=== PATIENT | male | born 1930 | race Caucasian/White ===

== ENCOUNTER 2017-04-18 13:58 | Inpatient (IN) | payer MEDICARE, OTHER ==
[~2017-04-18] VITALS: Ht 188 cm; Wt 98.0 kg
[~2017-04-18 13:58] MED LIST: ASPI81CH PO; Benadryl25 MG PO; CALMAGZIN; CHOL10002; CLOP75 PO; CYAN1000 PO; Combigan Eye Dro5 ML BOTHEYES; DILT120 PO; DOCU100 PO; ELIQUIS2.5 MG PO; GLIM2 PO; GLIM4; LISI5 PO; METF500 PO; METF500C PO; NITR.4SL; NITR.4SL SL; Pravachol40 MG PO; Prednisone2.5 MG PO; TRIHYD253B PO; XARELTO10 MG PO; XARELTO20 MG PO; Xalatan2.5 ML BOTHEYES
[2017-04-18 15:27] LABS: Hematocrit 42.1 % (37.0-53.0); Hemoglobin 14.1 g/dL (13.5-17.5); Mean Corpuscular HGB 32.1 pg (26.0-34.0); Mean Corpuscular HGB Conc 33.5 g/dL (31.5-36.5); Mean Corpuscular Volume 96 fL (80-100); Mean Platelet Volume 11.4 fL (9.1-12.4); Platelet Count 153 K/mm3 (150-400); RDW Coefficient Variation 13.6 % (11.7-14.2); RDW Standard Deviation 48.9 fL (35.1-46.3); Red Blood Cell Count 4.39 M/mm3 (4.30-5.90); White Blood Cell Count 13.46 K/mm3 (4.00-11.30)
[2017-04-18] MEDS ORDERED: RANI150 PO (15:32)
[2017-04-18 15:51] LABS: Albumin, Blood 3.7 g/dL (3.4-5.0); Albumin/Globulin Ratio 1.4 (0.8-1.8); BASOPHILS PERCENT MAN 0 % (0-2); Bilirubin, Total 0.6 mg/dL (0.1-1.0); Bun/Creatinine Ratio 15.6 (12.0-20.0); Calcium, Blood 8.7 mg/dL (8.5-10.1); Creatinine, Blood 1.47 mg/dL (0.60-1.20); EOSINOPHILS ABSOLUTE MAN 0.26 K/mm3 (0.00-0.68); EOSINOPHILS PERCENT MAN 2 % (0-6); Free Thyroxine 0.9 ng/dL (0.70-1.60); Globulin, Blood 2.7 g/dL (2.2-4.0); LYMPHOCYTES % ATYPICAL MANUAL 1 % (0-0); LYMPHOCYTES ABSOLUTE MAN 3.23 K/mm3 (0.84-5.20); LYMPHOCYTES PERCENT MAN 23 % (21-46); MONOCYTES ABSOLUTE MAN 0.67 K/mm3 (0.16-1.47); MONOCYTES PERCENT MAN 5 % (4-13); NEUTROPHILS ABSOLUTE MAN 9.28 K/mm3 (1.96-9.15); Potassium, Blood 4.2 mmol/L (3.5-5.5); SEG NEUTROPHILS PERCENT MAN 69 % (41-73); TOTAL CELLS COUNTED 100; Total Protein, Blood 6.4 g/dL (6.4-8.2)
[2017-04-18 16:01] LABS: Thyroid Stimulating Hormone 1.77 uIU/mL (0.360-4.800)
[2017-04-18 16:09] LABS: Troponin I 1.03 ng/mL (0.000-0.040)
[2017-04-18 18:03] LABS: International Normalized Ratio 1.01; Prothrombin Time Results 10.5 Sec (9.7-11.5)
[2017-04-19 04:57] LABS: BASOPHILS ABSOLUTE AUTO 0.08 K/mm3 (0.00-0.23); BASOPHILS PERCENT AUTO 1 % (0-2); EOSINOPHILS ABSOLUTE AUTO 0.23 K/mm3 (0.00-0.68); EOSINOPHILS PERCENT AUTO 2 % (0-6); Hematocrit 42.8 % (37.0-53.0); Mean Corpuscular HGB 31.6 pg (26.0-34.0); Mean Corpuscular HGB Conc 32.7 g/dL (31.5-36.5); Mean Corpuscular Volume 97 fL (80-100); Mean Platelet Volume 11.5 fL (9.1-12.4); Platelet Count 161 K/mm3 (150-400); RDW Coefficient Variation 13.9 % (11.7-14.2); RDW Standard Deviation 49.3 fL (35.1-46.3); Red Blood Cell Count 4.43 M/mm3 (4.30-5.90); White Blood Cell Count 15.32 K/mm3 (4.00-11.30)
[2017-04-19 05:04] LABS: IMMATURE GRAN ABSOLUTE AUTO 0.04 K/mm3 (0.00-0.10); IMMATURE GRAN PERCENT AUTO 0 % (0-1); LYMPHOCYTES ABSOLUTE AUTO 6.23 K/mm3 (0.84-5.20); LYMPHOCYTES PERCENT AUTO 41 % (21-46); MONOCYTES ABSOLUTE AUTO 1.13 K/mm3 (0.16-1.47); MONOCYTES PERCENT AUTO 7 % (4-13); NEUTROPHILS ABSOLUTE AUTO 7.61 K/mm3 (1.96-9.15); NEUTROPHILS PERCENT AUTO 50 % (41-73)
[2017-04-19 05:22] LABS: Albumin, Blood 3.5 g/dL (3.4-5.0); Albumin/Globulin Ratio 1.3 (0.8-1.8); Bilirubin, Total 0.8 mg/dL (0.1-1.0); Calcium, Blood 8.4 mg/dL (8.5-10.1); Creatinine, Blood 1.37 mg/dL (0.60-1.20); Globulin, Blood 2.7 g/dL (2.2-4.0); Total Protein, Blood 6.2 g/dL (6.4-8.2)
[2017-04-19 06:21] LABS: Troponin I 1.01 ng/mL (0.000-0.040)
[2017-04-20 04:22] LABS: BASOPHILS ABSOLUTE AUTO 0.07 K/mm3 (0.00-0.23); BASOPHILS PERCENT AUTO 0 % (0-2); EOSINOPHILS ABSOLUTE AUTO 0.15 K/mm3 (0.00-0.68); EOSINOPHILS PERCENT AUTO 1 % (0-6); Hematocrit 41.7 % (37.0-53.0); Hemoglobin 13.9 g/dL (13.5-17.5); Mean Corpuscular HGB 31.9 pg (26.0-34.0); Mean Corpuscular HGB Conc 33.3 g/dL (31.5-36.5); Mean Corpuscular Volume 96 fL (80-100); Mean Platelet Volume 12.8 fL (9.1-12.4); Platelet Count 123 K/mm3 (150-400); RDW Coefficient Variation 13.4 % (11.7-14.2); RDW Standard Deviation 47.8 fL (35.1-46.3); Red Blood Cell Count 4.36 M/mm3 (4.30-5.90); White Blood Cell Count 17.47 K/mm3 (4.00-11.30)
[2017-04-20 04:24] LABS: IMMATURE GRAN ABSOLUTE AUTO 0.06 K/mm3 (0.00-0.10); IMMATURE GRAN PERCENT AUTO 0 % (0-1); LYMPHOCYTES PERCENT AUTO 35 % (21-46); MONOCYTES PERCENT AUTO 7 % (4-13); NEUTROPHILS ABSOLUTE AUTO 9.79 K/mm3 (1.96-9.15); NEUTROPHILS PERCENT AUTO 56 % (41-73)
[2017-04-20 04:52] LABS: Albumin, Blood 3.7 g/dL (3.4-5.0); Albumin/Globulin Ratio 1.2 (0.8-1.8); Bun/Creatinine Ratio 21.8 (12.0-20.0); Calcium, Blood 8.9 mg/dL (8.5-10.1); Creatinine, Blood 1.47 mg/dL (0.60-1.20); Globulin, Blood 3.2 g/dL (2.2-4.0); Potassium, Blood 4.5 mmol/L (3.5-5.5); Total Protein, Blood 6.9 g/dL (6.4-8.2)
[2017-04-21] MEDS ORDERED: AZIT250 PO (14:57)
[2017-04-21] MEDS ORDERED: DILT120 PO (14:58)
== END 2017-04-21 15:07 | disposition home health service (06) | DRG 308 ==
LOC: ER 13:58 → PCU 13:59
PROVIDERS: Emergency Medicine; Family Medicine; Pharmacist
DX: I48.0 Paroxysmal atrial fibrillation (principal); J18.9 Pneumonia, unspecified organism; C91.10 Chronic lymphocytic leukemia of B-cell type not having achieved remission; E11.22 Type 2 diabetes mellitus with diabetic chronic kidney disease; I13.0 Hypertensive heart and chronic kidney disease with heart failure and stage 1 through stage 4 chronic kidney disease, or unspecified chronic kidney disease; E11.51 Type 2 diabetes mellitus with diabetic peripheral angiopathy without gangrene; I50.20 Unspecified systolic (congestive) heart failure; F05 Delirium due to known physiological condition; G31.84 Mild cognitive impairment of uncertain or unknown etiology; N18.9 Chronic kidney disease, unspecified; I25.10 Atherosclerotic heart disease of native coronary artery without angina pectoris; E78.5 Hyperlipidemia, unspecified; Z88.0 Allergy status to penicillin; I25.2 Old myocardial infarction; Z95.5 Presence of coronary angioplasty implant and graft; Z87.891 Personal history of nicotine dependence; Z79.01 Long term (current) use of anticoagulants; Z79.82 Long term (current) use of aspirin; Z79.84 Long term (current) use of oral hypoglycemic drugs; Z79.899 Other long term (current) drug therapy
CPT/HCPCS: 36415; 71046; 80053; 82947; 83880; 84439; 84443; 84484; 85025; 85610; 85730; 87040; 93005; 93010; 93306; 96361; 96365; 96366; 96375; 99285; J0456; J0696; J1644; J1650; J1940; J7030; J7050; J7060

== ENCOUNTER 2017-04-26 09:13 | Inpatient (IN) | payer MEDICARE, OTHER ==
[~2017-04-26] VITALS: Ht 188 cm; Wt 103.8 kg
[~2017-04-26 09:13] MED LIST changes: +AZIT250 PO; +RANI150 PO
[2017-04-26 09:37] LABS: Hematocrit 39.2 % (37.0-53.0); Hemoglobin 12.9 g/dL (13.5-17.5); Mean Corpuscular HGB 31.8 pg (26.0-34.0); Mean Corpuscular HGB Conc 32.9 g/dL (31.5-36.5); Mean Corpuscular Volume 97 fL (80-100); Mean Platelet Volume 11.5 fL (9.1-12.4); Platelet Count 218 K/mm3 (150-400); RDW Coefficient Variation 13.9 % (11.7-14.2); RDW Standard Deviation 49.6 fL (35.1-46.3); Red Blood Cell Count 4.06 M/mm3 (4.30-5.90)
[2017-04-26 10:08] LABS: Albumin, Blood 3.7 g/dL (3.4-5.0); Albumin/Globulin Ratio 1.2 (0.8-1.8); Bilirubin, Total 0.7 mg/dL (0.1-1.0); Bun/Creatinine Ratio 26.9 (12.0-20.0); Calcium, Blood 8.5 mg/dL (8.5-10.1); Creatinine, Blood 1.6 mg/dL (0.60-1.20); Potassium, Blood 4.5 mmol/L (3.5-5.5); Total Protein, Blood 6.7 g/dL (6.4-8.2)
[2017-04-26 10:12] LABS: Troponin I 0.919 ng/mL (0.000-0.040)
[2017-04-26 10:39] LABS: BASOPHILS ABSOLUTE MAN 0.17 K/mm3 (0.00-0.23); BASOPHILS PERCENT MAN 1 % (0-2); EOSINOPHILS PERCENT MAN 0 % (0-6); LYMPHOCYTES ABSOLUTE MAN 8.23 K/mm3 (0.84-5.20); LYMPHOCYTES PERCENT MAN 46 % (21-46); MONOCYTES ABSOLUTE MAN 0.71 K/mm3 (0.16-1.47); MONOCYTES PERCENT MAN 4 % (4-13); NEUTROPHILS ABSOLUTE MAN 8.77 K/mm3 (1.96-9.15); SEG NEUTROPHILS PERCENT MAN 49 % (41-73); TOTAL CELLS COUNTED 100
[2017-04-26] MEDS ORDERED: GLIM2 PO (15:08)
[2017-04-27 05:18] LABS: BASOPHILS ABSOLUTE AUTO 0.08 K/mm3 (0.00-0.23); BASOPHILS PERCENT AUTO 1 % (0-2); EOSINOPHILS ABSOLUTE AUTO 0.13 K/mm3 (0.00-0.68); EOSINOPHILS PERCENT AUTO 1 % (0-6); Hematocrit 39.8 % (37.0-53.0); IMMATURE GRAN ABSOLUTE AUTO 0.05 K/mm3 (0.00-0.10); IMMATURE GRAN PERCENT AUTO 0 % (0-1); LYMPHOCYTES ABSOLUTE AUTO 3.83 K/mm3 (0.84-5.20); LYMPHOCYTES PERCENT AUTO 24 % (21-46); MONOCYTES ABSOLUTE AUTO 0.96 K/mm3 (0.16-1.47); MONOCYTES PERCENT AUTO 6 % (4-13); Mean Corpuscular HGB 31.8 pg (26.0-34.0); Mean Corpuscular HGB Conc 32.7 g/dL (31.5-36.5); Mean Corpuscular Volume 97 fL (80-100); Mean Platelet Volume 11.5 fL (9.1-12.4); NEUTROPHILS PERCENT AUTO 68 % (41-73); Platelet Count 190 K/mm3 (150-400); RDW Coefficient Variation 13.8 % (11.7-14.2); RDW Standard Deviation 49.3 fL (35.1-46.3); Red Blood Cell Count 4.09 M/mm3 (4.30-5.90); White Blood Cell Count 15.95 K/mm3 (4.00-11.30)
[2017-04-27 05:47] LABS: Albumin, Blood 3.6 g/dL (3.4-5.0); Albumin/Globulin Ratio 1.2 (0.8-1.8); Bilirubin, Total 0.7 mg/dL (0.1-1.0); Bun/Creatinine Ratio 28.7 (12.0-20.0); Calcium, Blood 8.7 mg/dL (8.5-10.1); Creatinine, Blood 1.67 mg/dL (0.60-1.20); Globulin, Blood 2.9 g/dL (2.2-4.0); Potassium, Blood 4.1 mmol/L (3.5-5.5); Total Protein, Blood 6.5 g/dL (6.4-8.2)
[2017-04-28 05:12] LABS: BASOPHILS ABSOLUTE AUTO 0.05 K/mm3 (0.00-0.23); BASOPHILS PERCENT AUTO 0 % (0-2); EOSINOPHILS ABSOLUTE AUTO 0.18 K/mm3 (0.00-0.68); EOSINOPHILS PERCENT AUTO 1 % (0-6); Hematocrit 38.9 % (37.0-53.0); Hemoglobin 12.8 g/dL (13.5-17.5); IMMATURE GRAN ABSOLUTE AUTO 0.07 K/mm3 (0.00-0.10); IMMATURE GRAN PERCENT AUTO 1 % (0-1); LYMPHOCYTES ABSOLUTE AUTO 3.62 K/mm3 (0.84-5.20); LYMPHOCYTES PERCENT AUTO 25 % (21-46); MONOCYTES ABSOLUTE AUTO 1.08 K/mm3 (0.16-1.47); MONOCYTES PERCENT AUTO 8 % (4-13); Mean Corpuscular HGB Conc 32.9 g/dL (31.5-36.5); Mean Corpuscular Volume 97 fL (80-100); Mean Platelet Volume 11.3 fL (9.1-12.4); NEUTROPHILS ABSOLUTE AUTO 9.35 K/mm3 (1.96-9.15); NEUTROPHILS PERCENT AUTO 65 % (41-73); Platelet Count 176 K/mm3 (150-400); RDW Coefficient Variation 13.6 % (11.7-14.2); White Blood Cell Count 14.35 K/mm3 (4.00-11.30)
[2017-04-28 05:42] LABS: Albumin, Blood 3.4 g/dL (3.4-5.0); Anion Gap 11 mmol/L (6-16); Blood Urea Nitrogen 53 mg/dL (8-24); Bun/Creatinine Ratio 26.2 (12.0-20.0); CO2, Blood 22 mmol/L (21-32); Calcium, Blood 8.7 mg/dL (8.5-10.1); Chloride, Blood 105 mmol/L (98-108); Creatinine, Blood 2.02 mg/dL (0.60-1.20); Glomerular Filtration Rate 33 (60-); Glucose, Blood 118 mg/dL (70-99); Phosphorus, Blood 3.7 mg/dL (2.5-4.9); Sodium, Blood 138 mmol/L (136-145)
[2017-04-28 12:39] LABS: Vancomycin, Trough 11.4 ug/mL (5.0-10.0)
[2017-04-29 06:17] LABS: Albumin, Blood 3.1 g/dL (3.4-5.0); Anion Gap 8 mmol/L (6-16); Blood Urea Nitrogen 59 mg/dL (8-24); Bun/Creatinine Ratio 30.4 (12.0-20.0); CO2, Blood 24 mmol/L (21-32); Calcium, Blood 8.5 mg/dL (8.5-10.1); Chloride, Blood 106 mmol/L (98-108); Creatinine, Blood 1.94 mg/dL (0.60-1.20); Glomerular Filtration Rate 35 (60-); Glucose, Blood 103 mg/dL (70-99); Phosphorus, Blood 3.6 mg/dL (2.5-4.9); Potassium, Blood 4.2 mmol/L (3.5-5.5); Sodium, Blood 138 mmol/L (136-145)
[2017-04-30 06:08] LABS: Albumin, Blood 3.1 g/dL (3.4-5.0); Anion Gap 8 mmol/L (6-16); Blood Urea Nitrogen 61 mg/dL (8-24); Bun/Creatinine Ratio 30.5 (12.0-20.0); CO2, Blood 26 mmol/L (21-32); Calcium, Blood 8.3 mg/dL (8.5-10.1); Chloride, Blood 104 mmol/L (98-108); Glomerular Filtration Rate 34 (60-); Glucose, Blood 133 mg/dL (70-99); Phosphorus, Blood 3.9 mg/dL (2.5-4.9); Sodium, Blood 138 mmol/L (136-145)
[2017-04-30] MEDS ORDERED: Acetaminophen325 M1 PO (14:25)
[2017-04-30] MEDS ORDERED: CARV6.25 PO (14:26)
[2017-04-30] MEDS ORDERED: FURO20 PO (14:27)
[2017-04-30] MEDS ORDERED: LEVFLO250 PO (14:28)
[2017-04-30] MEDS ORDERED: SPIR25 PO (14:29)
[2017-04-30] MEDS ORDERED: PANT40 PO (14:29)
[2017-04-30] MEDS ORDERED: Nitroglycerin0.4 MG SL (14:29)
[2017-04-30] MEDS ORDERED: ALBU90OI INH (14:30)
[2017-04-30] MEDS ORDERED: Desyrel50 MG PO (14:30)
== END 2017-04-30 17:50 | disposition home or self-care (01) | DRG 291 ==
LOC: ER 09:13 → MEDS 12:22 → ENPENDDIS 04-30 14:04 → MEDS 04-30 17:50
PROVIDERS: Emergency Medicine; Family Medicine; Internal Medicine
DX: I50.43 Acute on chronic combined systolic (congestive) and diastolic (congestive) heart failure (principal); J18.9 Pneumonia, unspecified organism; E87.2 Acidosis; I48.2 Chronic atrial fibrillation; I24.8 Other forms of acute ischemic heart disease; E11.9 Type 2 diabetes mellitus without complications; I73.9 Peripheral vascular disease, unspecified; G31.84 Mild cognitive impairment of uncertain or unknown etiology; E78.5 Hyperlipidemia, unspecified; F17.211 Nicotine dependence, cigarettes, in remission; Z66 Do not resuscitate; Z79.01 Long term (current) use of anticoagulants; Z79.82 Long term (current) use of aspirin; Z86.73 Personal history of transient ischemic attack (TIA), and cerebral infarction without residual deficits; Z98.52 Vasectomy status
CPT/HCPCS: 36415; 71046; 80053; 80069; 80202; 82947; 83605; 83880; 84484; 85025; 87040; 93005; 93010; 94640; 94760; 94761; 94762; 96374; 96375; 97110; 97116; 97161; 97530; 99285; G8978; G8979; J1940; J1956; J2060; J3370; J7030; J7050

== ENCOUNTER 2017-05-17 14:11 | Emergency (ER) | payer MEDICARE, OTHER ==
[~2017-05-17] VITALS: Ht 188 cm; Wt 90.7 kg
[~2017-05-17 14:11] MED LIST changes: +ALBU90OI INH; +Acetaminophen325 M1 PO; +CARV6.25 PO; +Desyrel50 MG PO; +FURO20 PO; +LEVFLO250 PO; +Nitroglycerin0.4 MG SL; +PANT40 PO; +SPIR25 PO
[2017-05-17 14:53] LABS: BASOPHILS ABSOLUTE AUTO 0.04 K/mm3 (0.00-0.23); BASOPHILS PERCENT AUTO 0 % (0-2); EOSINOPHILS ABSOLUTE AUTO 0.16 K/mm3 (0.00-0.68); EOSINOPHILS PERCENT AUTO 1 % (0-6); Hematocrit 40.6 % (37.0-53.0); IMMATURE GRAN ABSOLUTE AUTO 0.04 K/mm3 (0.00-0.10); IMMATURE GRAN PERCENT AUTO 0 % (0-1); LYMPHOCYTES ABSOLUTE AUTO 2.76 K/mm3 (0.84-5.20); LYMPHOCYTES PERCENT AUTO 24 % (21-46); MONOCYTES ABSOLUTE AUTO 0.72 K/mm3 (0.16-1.47); MONOCYTES PERCENT AUTO 6 % (4-13); Mean Corpuscular HGB 31.9 pg (26.0-34.0); Mean Corpuscular Volume 100 fL (80-100); Mean Platelet Volume 12.4 fL (9.1-12.4); NEUTROPHILS ABSOLUTE AUTO 7.69 K/mm3 (1.96-9.15); NEUTROPHILS PERCENT AUTO 67 % (41-73); Platelet Count 131 K/mm3 (150-400); RDW Coefficient Variation 13.6 % (11.7-14.2); RDW Standard Deviation 49.6 fL (35.1-46.3); Red Blood Cell Count 4.08 M/mm3 (4.30-5.90); White Blood Cell Count 11.41 K/mm3 (4.00-11.30)
[2017-05-17 15:11] LABS: Albumin, Blood 3.3 g/dL (3.4-5.0); Albumin/Globulin Ratio 1.1 (0.8-1.8); Bilirubin, Total 0.7 mg/dL (0.1-1.0); Bun/Creatinine Ratio 14.7 (12.0-20.0); Calcium, Blood 8.5 mg/dL (8.5-10.1); Creatinine, Blood 1.97 mg/dL (0.60-1.20); Globulin, Blood 2.9 g/dL (2.2-4.0); Potassium, Blood 4.2 mmol/L (3.5-5.5); Total Protein, Blood 6.2 g/dL (6.4-8.2); Troponin I 0.094 ng/mL (0.000-0.040)
[2017-05-17] MEDS ORDERED: METF500C PO (15:54)
[2017-05-17] MEDS ORDERED: FURO40 PO (15:56)
[2017-05-17] MEDS ORDERED: SIMV40 PO (15:59)
[2017-05-17] MEDS ORDERED: DILT120 PO (16:00)
[2017-05-17] MEDS ORDERED: Zantac25 MG/1 ML (16:01)
[2017-05-17] MEDS ORDERED: Cartia Xt120 MG PO (16:02)
[2017-05-17] MEDS ORDERED: DIGOX125 MCG PO (16:17)
== END 2017-05-17 16:45 | disposition home or self-care (01) ==
LOC: ER 14:11
PROVIDERS: Emergency Medicine
DX: I50.9 Heart failure, unspecified (principal); Z88.0 Allergy status to penicillin; Z79.899 Other long term (current) drug therapy; Z79.82 Long term (current) use of aspirin; Z79.2 Long term (current) use of antibiotics; Z86.73 Personal history of transient ischemic attack (TIA), and cerebral infarction without residual deficits; I48.91 Unspecified atrial fibrillation; Z87.891 Personal history of nicotine dependence
CPT/HCPCS: 36415; 71046; 80053; 83880; 84484; 85025; 93005; 93010; 96374; 99284; J1940

== ENCOUNTER → 2017-06-08 | Outpatient (CLI) | payer MEDICARE, OTHER ==
[~2017-06-08] MED LIST changes: +Cartia Xt120 MG PO; +DIGOX125 MCG PO; +FURO40 PO; +SIMV40 PO
[2017-06-08 11:55] LABS: Protein, Urine Quantitative 25.6 mg/dL (0.0-11.9)
[2017-06-08 11:57] LABS: Microalbumin, Urine Quant. 99.3 mg/L (0.000-20.000)
== END | disposition home or self-care (01) ==
LOC: LAB SHORT 06:30 → OLS 06:30 → LAB FUT 06-06 10:00
PROVIDERS: Internal Medicine Nephrology
DX: N18.3 Chronic kidney disease, stage 3 (moderate) (principal); D63.1 Anemia in chronic kidney disease; D75.1 Secondary polycythemia; N25.81 Secondary hyperparathyroidism of renal origin; E78.00 Pure hypercholesterolemia, unspecified; E55.9 Vitamin D deficiency, unspecified; R76.9 Abnormal immunological finding in serum, unspecified; R94.5 Abnormal results of liver function studies; R94.6 Abnormal results of thyroid function studies
CPT/HCPCS: 81050; 82043; 84156

== ENCOUNTER 2017-12-04 16:18 | Inpatient (IN) | payer MEDICARE, OTHER ==
[~2017-12-04] VITALS: Ht 188 cm; Wt 97.9 kg
[~2017-12-04 16:18] MED LIST changes: +Zantac25 MG/1 ML
[2017-12-04 17:05] LABS: BASOPHILS ABSOLUTE AUTO 0.06 K/mm3 (0.00-0.23); BASOPHILS PERCENT AUTO 0 % (0-2); EOSINOPHILS ABSOLUTE AUTO 0.25 K/mm3 (0.00-0.68); EOSINOPHILS PERCENT AUTO 2 % (0-6); Hematocrit 33.9 % (37.0-53.0); Hemoglobin 11.1 g/dL (13.5-17.5); IMMATURE GRAN ABSOLUTE AUTO 0.04 K/mm3 (0.00-0.10); IMMATURE GRAN PERCENT AUTO 0 % (0-1); LYMPHOCYTES ABSOLUTE AUTO 5.61 K/mm3 (0.84-5.20); LYMPHOCYTES PERCENT AUTO 40 % (21-46); MONOCYTES ABSOLUTE AUTO 1.07 K/mm3 (0.16-1.47); MONOCYTES PERCENT AUTO 8 % (4-13); Mean Corpuscular HGB 33.5 pg (26.0-34.0); Mean Corpuscular HGB Conc 32.7 g/dL (31.5-36.5); Mean Corpuscular Volume 102 fL (80-100); Mean Platelet Volume 11.5 fL (9.1-12.4); NEUTROPHILS ABSOLUTE AUTO 6.91 K/mm3 (1.96-9.15); NEUTROPHILS PERCENT AUTO 50 % (41-73); Platelet Count 153 K/mm3 (150-400); RDW Coefficient Variation 11.9 % (11.7-14.2); RDW Standard Deviation 45.1 fL (35.1-46.3); Red Blood Cell Count 3.31 M/mm3 (4.30-5.90); White Blood Cell Count 13.94 K/mm3 (4.00-11.30)
[2017-12-04 17:24] LABS: Albumin/Globulin Ratio 1.3 (0.8-1.8); Bilirubin, Total 0.3 mg/dL (0.1-1.0); Bun/Creatinine Ratio 22.6 (12.0-20.0); Calcium, Blood 9.1 mg/dL (8.5-10.1); Creatinine, Blood 3.76 mg/dL (0.60-1.20); Globulin, Blood 3.1 g/dL (2.2-4.0); Potassium, Blood 5.3 mmol/L (3.5-5.5); Total Protein, Blood 7.1 g/dL (6.4-8.2); Troponin I 0.025 ng/mL (0.000-0.040)
[2017-12-05 04:49] LABS: BASOPHILS ABSOLUTE AUTO 0.03 K/mm3 (0.00-0.23); BASOPHILS PERCENT AUTO 0 % (0-2); EOSINOPHILS ABSOLUTE AUTO 0.18 K/mm3 (0.00-0.68); EOSINOPHILS PERCENT AUTO 2 % (0-6); Hematocrit 31.7 % (37.0-53.0); Hemoglobin 10.4 g/dL (13.5-17.5); IMMATURE GRAN ABSOLUTE AUTO 0.03 K/mm3 (0.00-0.10); IMMATURE GRAN PERCENT AUTO 0 % (0-1); LYMPHOCYTES ABSOLUTE AUTO 4.54 K/mm3 (0.84-5.20); LYMPHOCYTES PERCENT AUTO 42 % (21-46); MONOCYTES ABSOLUTE AUTO 0.92 K/mm3 (0.16-1.47); MONOCYTES PERCENT AUTO 9 % (4-13); Mean Corpuscular HGB Conc 32.8 g/dL (31.5-36.5); Mean Corpuscular Volume 101 fL (80-100); Mean Platelet Volume 11.4 fL (9.1-12.4); NEUTROPHILS PERCENT AUTO 47 % (41-73); Platelet Count 127 K/mm3 (150-400); RDW Coefficient Variation 12.2 % (11.7-14.2); RDW Standard Deviation 44.5 fL (35.1-46.3); Red Blood Cell Count 3.15 M/mm3 (4.30-5.90)
[2017-12-05 05:07] LABS: Albumin, Blood 3.6 g/dL (3.4-5.0); Anion Gap 9 mmol/L (6-16); Blood Urea Nitrogen 85 mg/dL (8-24); Bun/Creatinine Ratio 25.4 (12.0-20.0); CO2, Blood 26 mmol/L (21-32); Calcium, Blood 9.1 mg/dL (8.5-10.1); Chloride, Blood 108 mmol/L (98-108); Creatinine, Blood 3.34 mg/dL (0.60-1.20); Glomerular Filtration Rate 19 (60-); Glucose, Blood 132 mg/dL (70-99); Magnesium, Blood 2.7 mg/dL (1.6-2.4); Phosphorus, Blood 4.5 mg/dL (2.5-4.9); Potassium, Blood 4.9 mmol/L (3.5-5.5); Sodium, Blood 143 mmol/L (136-145)
[2017-12-05 05:58] LABS: Source, Urine Clean Catch
[2017-12-05 06:04] LABS: Bilirubin, Urine Neg (Neg); Blood, Urine Neg (Neg); Glucose Qualitative, Urine Neg (Neg); Ketones, Urine Neg (Neg); Leukocyte Esterase, Urine Neg (Neg); Nitrite, Urine Neg (Neg); Protein, Urine 1+ (Neg); Urobilinogen, Urine NORM (Normal); pH, Urine 6.5 (5.0-8.0)
[2017-12-05 06:06] LABS: Appearance, Urine Clear (Clear); Color, Urine Yellow (P-Yellow)
[2017-12-05 06:30] LABS: U Amphetamine Screen Not Detected; U Barbituate Screen Not Detected; U Benzodiazapine Screen Not Detected; U Methamphetamine Screen Not Detected
[2017-12-05 06:31] LABS: U Buprenorphine Screen Not Detected; U Cannabinoids Screen Not Detected; U Cocaine Screen Not Detected; U Methadone Screen Not Detected; U Opiates Screen Not Detected; U Oxycodone Screen Not Detected; U Phencyclidine Screen Not Detected; U Propoxyphene Screen Not Detected
[2017-12-05] MEDS ORDERED: BUME2 PO (11:39)
[2017-12-06 05:56] LABS: Albumin, Blood 3.7 g/dL (3.4-5.0); Anion Gap 8 mmol/L (6-16); Blood Urea Nitrogen 77 mg/dL (8-24); Bun/Creatinine Ratio 24.3 (12.0-20.0); CO2, Blood 27 mmol/L (21-32); Calcium, Blood 9.1 mg/dL (8.5-10.1); Chloride, Blood 107 mmol/L (98-108); Creatinine, Blood 3.17 mg/dL (0.60-1.20); Glomerular Filtration Rate 20 (60-); Glucose, Blood 130 mg/dL (70-99); Magnesium, Blood 2.7 mg/dL (1.6-2.4); Phosphorus, Blood 3.8 mg/dL (2.5-4.9); Potassium, Blood 4.7 mmol/L (3.5-5.5); Sodium, Blood 142 mmol/L (136-145)
[2017-12-06 10:12] LABS: HBSAG SCREEN Negative (Negative); HEP A AB, IGM Negative (Negative); HEP B CORE AB, IGM Negative (Negative); HEP C VIRUS AB <0.1 (0.0-0.9)
[2017-12-06] MEDS ORDERED: FURO40 (16:06)
== END 2017-12-06 16:35 | disposition home or self-care (01) | DRG 309 ==
LOC: ER 16:18 → ICUW 18:43 → ERHOLD 18:43 → ICUW 23:00 → SURS 12-05 14:15 → ICUE 12-06 12:07
PROVIDERS: Emergency Medicine; Internal Medicine Nephrology; Nurse Practitioner Acute Care
DX: I48.2 Chronic atrial fibrillation (principal); N18.4 Chronic kidney disease, stage 4 (severe); N17.9 Acute kidney failure, unspecified; I50.42 Chronic combined systolic (congestive) and diastolic (congestive) heart failure; I12.9 Hypertensive chronic kidney disease with stage 1 through stage 4 chronic kidney disease, or unspecified chronic kidney disease; E11.22 Type 2 diabetes mellitus with diabetic chronic kidney disease; E11.51 Type 2 diabetes mellitus with diabetic peripheral angiopathy without gangrene; I25.10 Atherosclerotic heart disease of native coronary artery without angina pectoris; E87.5 Hyperkalemia; D63.1 Anemia in chronic kidney disease; E86.9 Volume depletion, unspecified; E83.41 Hypermagnesemia; Z86.73 Personal history of transient ischemic attack (TIA), and cerebral infarction without residual deficits; Z95.5 Presence of coronary angioplasty implant and graft; Z79.01 Long term (current) use of anticoagulants; Z79.84 Long term (current) use of oral hypoglycemic drugs; Z79.82 Long term (current) use of aspirin; Z79.899 Other long term (current) drug therapy; Z88.0 Allergy status to penicillin
CPT/HCPCS: 36415; 71045; 76770; 80048; 80053; 80069; 80074; 82947; 83735; 84443; 84484; 85014; 85018; 85025; 86317; 93005; 93010; 96374; 99285-25

== ENCOUNTER → 2017-12-11 | Outpatient (CLI) | payer MEDICARE, OTHER ==
[~2017-12-11] MED LIST changes: +BUME2 PO; +FURO40
== END ==
LOC: LAB SHORT 10:00 → LAB 10:00
DX: D51.8 Other vitamin B12 deficiency anemias (principal)
CPT/HCPCS: 82607; 82746

== ENCOUNTER 2018-03-26 14:25 | Inpatient (IN) | payer MEDICARE, OTHER ==
[~2018-03-26] VITALS: Ht 188 cm; Wt 92.7 kg
[~2018-03-26 14:25] MED LIST changes: -FURO40
[2018-03-26 16:37] LABS: Albumin, Blood 3.3 g/dL (3.4-5.0); Bilirubin, Total 0.6 mg/dL (0.1-1.0); Calcium, Blood 8.7 mg/dL (8.5-10.1); Creatinine, Blood 2.15 mg/dL (0.60-1.20); Globulin, Blood 3.4 g/dL (2.2-4.0); Potassium, Blood 4.6 mmol/L (3.5-5.5); Total Protein, Blood 6.7 g/dL (6.4-8.2)
[2018-03-26 16:58] LABS: Hemoglobin 14.9 g/dL (13.5-17.5); Mean Corpuscular HGB 32.8 pg (26.0-34.0); Mean Corpuscular HGB Conc 33.1 g/dL (31.5-36.5); Mean Corpuscular Volume 99 fL (80-100); Mean Platelet Volume 11.3 fL (9.1-12.4); Platelet Count 193 K/mm3 (150-400); RDW Coefficient Variation 12.5 % (11.7-14.2); RDW Standard Deviation 45.4 fL (35.1-46.3); Red Blood Cell Count 4.54 M/mm3 (4.30-5.90)
[2018-03-26 17:36] LABS: BAND PERCENT MAN 1 % (0-8); BASOPHILS PERCENT MAN 0 % (0-2); EOSINOPHILS PERCENT MAN 0 % (0-6); LYMPHOCYTES ABSOLUTE MAN 4.24 K/mm3 (0.84-5.20); LYMPHOCYTES PERCENT MAN 18 % (21-46); MONOCYTES ABSOLUTE MAN 0.94 K/mm3 (0.16-1.47); MONOCYTES PERCENT MAN 4 % (4-13); SEG NEUTROPHILS PERCENT MAN 77 % (41-73); TOTAL CELLS COUNTED 100
--- NOTE | 2018-03-27 01:09 | NUR ---
PT FEELING VERY ANXIOUS, ATTEMPTING TO GO HOME. HE STATES, "IM NOT SURE ABOUT THIS. I FEEL LOUSY. I THINK IM GONNA GO HOME." PT ABLE TO DE-ESCALATE AFTER DISCUSSING NEED AND BENEFITS OF STAYING. PT GIVEN 25 MCG OF FENTANYL FOR PAIN. GIVEN WARM BLANKET AND ASSISTED WITH COMFORT. CHEST TUBE IN PLACE, PATENT. NO AIR LEAK.
[2018-03-27] MEDS ORDERED: METF500C PO (05:03)
[2018-03-27] MEDS ORDERED: DIGOX125 MCG PO (05:05)
[2018-03-27] MEDS ORDERED: BUME2 PO (05:08)
[2018-03-27] MEDS ORDERED: Zantac150 MG PO (05:09)
[2018-03-27] MEDS ORDERED: ASCO500 PO (05:09)
[2018-03-27] MEDS ORDERED: UBID10 PO (05:10)
[2018-03-27] MEDS ORDERED: Prednisone2.5 MG PO (05:11)
[2018-03-27] MEDS ORDERED: LISI5 PO (05:12)
[2018-03-27] MEDS ORDERED: XARELTO10 MG PO (05:12)
[2018-03-27] MEDS ORDERED: TRAM50 PO (05:13)
[2018-03-27 05:17] LABS: Hematocrit 43.9 % (37.0-53.0); Hemoglobin 14.6 g/dL (13.5-17.5); Mean Corpuscular HGB 33.3 pg (26.0-34.0); Mean Corpuscular HGB Conc 33.3 g/dL (31.5-36.5); Mean Corpuscular Volume 100 fL (80-100); Mean Platelet Volume 11.4 fL (9.1-12.4); Platelet Count 184 K/mm3 (150-400); RDW Coefficient Variation 12.4 % (11.7-14.2); RDW Standard Deviation 46.3 fL (35.1-46.3); Red Blood Cell Count 4.38 M/mm3 (4.30-5.90)
[2018-03-27 05:48] LABS: Albumin, Blood 3.3 g/dL (3.4-5.0); Albumin/Globulin Ratio 1.1 (0.8-1.8); Bilirubin, Total 0.9 mg/dL (0.1-1.0); Bun/Creatinine Ratio 19.8 (12.0-20.0); Calcium, Blood 8.7 mg/dL (8.5-10.1); Creatinine, Blood 2.12 mg/dL (0.60-1.20); Potassium, Blood 4.1 mmol/L (3.5-5.5); Total Protein, Blood 6.3 g/dL (6.4-8.2)
--- NOTE | 2018-03-27 07:31 | NUR ---
SHIFT SUMMARY: PT ARRIVED TO UNIT EARLIER IN SHIFT. CHEST TUBE IN PLACE R SIDE. LOW, CONT SUCTION. NO OUTPUT. LIGHT BUBBLE IN SUCTION CHAMBER. NO AIR LEAKS NOTED. PT IS PULLIG AT TUBES AND DISCONNECTING CONNECTOR PIECES, TAPE HAS BEEN APPLIED. PT VERY CONFUSED, FORGETFUL, REQUIRES FREQUENT REORIENTATION. BED ALARM ON FOR SAFETY, PT IS QUITE WEAK. PT ON 2L VIA NC FOR MAINTENANCE O2. C/O SOB c CONVERSATION AND EXERTION. TREATED 2X c 25 MCG OF IV FENTANYL. NO OTHER ACUTE CHANGES TO REPORT. WILL CONT O MONITOR AND PROVIDE CARE UNTIL PRESUMED BY ONCOMING RN.
--- NOTE | 2018-03-27 14:00 | NUR ---
pt voiding only small amounts at a time. bladder scanned for 635. denies feeling like he has a full bladder or urinary distress. states he feels like he is emptying his bladder. will call md to notify.
[2018-03-27 18:01] LABS: Source, Urine Catheter
[2018-03-27 18:35] LABS: Bilirubin, Urine Neg (Neg); Blood, Urine Neg (Neg); Glucose Qualitative, Urine Neg (Neg); Ketones, Urine Neg (Neg); Leukocyte Esterase, Urine Neg (Neg); Nitrite, Urine Neg (Neg); Protein, Urine 1+ (Neg); Specific Gravity, Urine 1.015 (1.003-1.022); Urobilinogen, Urine NORM (Normal)
--- NOTE | 2018-03-27 18:40 | NUR ---
shift summary pt has had no resp distress and removed his oxygen several hours ago. md in to see pt this evening and rmoved chest tube. had been to water seal from morning til approx noon when it was clamped. was catheterized for 425 of clear yellow urine approx 1730. daughter at bedside twice today. pt more confused this morning than this afternoon but remain very forgetful.
[2018-03-27 18:53] LABS: Appearance, Urine Clear (Clear); Color, Urine Yellow (P-Yellow)
--- NOTE | 2018-03-28 04:52 | NUR ---
SHIFT SUMMARY: PT IS ALERT AND ORIENTED WITH INTERMITTENT CONFUSION, QUESTIONING WHY HE IS HERE AND HOW LONG HE IS GOING TO BE HERE. PT USES HIS CALL LIGHT INTERMITTENTLY, SETS OFF THE BED ALARM WELL TO GET UP TO THE BATHROOM, STANDBY ASSIST. PT DENIES PAIN, NAUSEA, VOMITING, AND SOB. PT SLEPT INTERMITTENTLY THROUGHOUT THE NIGHT. PT WANTS TO CALL HIS DAUGHTER TO DETERMINE WHAT'S GOING ON, AGREED TO PLACE THE CALL AT 0630. BED IN LOW POSITION, CALL LIGHT WITHIN REACH, BED ALARM SET. WILL REPORT TO DAY NURSE.
[2018-03-28 04:58] LABS: BASOPHILS ABSOLUTE AUTO 0.07 K/mm3 (0.00-0.23); BASOPHILS PERCENT AUTO 0 % (0-2); EOSINOPHILS ABSOLUTE AUTO 0.15 K/mm3 (0.00-0.68); EOSINOPHILS PERCENT AUTO 1 % (0-6); Hematocrit 43.3 % (37.0-53.0); Hemoglobin 14.2 g/dL (13.5-17.5); IMMATURE GRAN ABSOLUTE AUTO 0.12 K/mm3 (0.00-0.10); IMMATURE GRAN PERCENT AUTO 1 % (0-1); LYMPHOCYTES ABSOLUTE AUTO 4.44 K/mm3 (0.84-5.20); LYMPHOCYTES PERCENT AUTO 22 % (21-46); MONOCYTES ABSOLUTE AUTO 1.37 K/mm3 (0.16-1.47); MONOCYTES PERCENT AUTO 7 % (4-13); Mean Corpuscular HGB 33.3 pg (26.0-34.0); Mean Corpuscular HGB Conc 32.8 g/dL (31.5-36.5); Mean Corpuscular Volume 101 fL (80-100); Mean Platelet Volume 11.1 fL (9.1-12.4); NEUTROPHILS ABSOLUTE AUTO 13.77 K/mm3 (1.96-9.15); NEUTROPHILS PERCENT AUTO 69 % (41-73); Platelet Count 163 K/mm3 (150-400); RDW Coefficient Variation 12.4 % (11.7-14.2); RDW Standard Deviation 46.5 fL (35.1-46.3); Red Blood Cell Count 4.27 M/mm3 (4.30-5.90); White Blood Cell Count 19.92 K/mm3 (4.00-11.30)
[2018-03-28 05:18] LABS: Bun/Creatinine Ratio 20.3 (12.0-20.0); Calcium, Blood 8.5 mg/dL (8.5-10.1); Creatinine, Blood 2.22 mg/dL (0.60-1.20); Potassium, Blood 4.3 mmol/L (3.5-5.5)
[2018-03-28] MEDS ORDERED: PAIN & FEVER325 MG PO (13:30)
[2018-03-28] MEDS ORDERED: ELIQUIS2.5 MG PO (13:44)
[2018-03-28] MEDS ORDERED: ALBU90OI INH (14:03)
--- NOTE | 2018-03-28 19:17 | NUR ---
DISCHARGE INSTRUCTIONS COMPLETED AND DISCUSSED WITH PTS DAUGHTER WITH HER EXPRESSING UNDERSTANDING. RUSSELL PLACED EARLIER WITH PT AGREEABLE AND COOPERATIVE WITH PROCESS. DAUGHTER CONCERNED ABOUT CHANGING RUSSELL BAG FROM LARGE BAG TO LEG BAG SO DECISION WAS MADE TO KEEP LARGE BAG IN PLACE FOR NOW AND SEND REPLACEMENT SUPPLIES WITH HIM. INFORMATION ABOUT RUSSELL SENT WITH PAPERWORK WELL. TO [facility] VIA W/C.
== END 2018-03-28 17:20 | disposition home or self-care (01) | DRG 200 ==
LOC: ER 14:25 → ERHOLD 17:20 → MEDS 17:20 → ENPENDDIS 03-28 12:52 → MEDS 03-28 17:20
PROVIDERS: Emergency Medicine; ADMIT Family Medicine
PROC: 0W9930Z Drainage of Right Pleural Cavity with Drainage Device, Percutaneous Approach (ICD-10-PCS; principal; 2018-03-26)
DX: S27.0XXA Traumatic pneumothorax, initial encounter (principal); S22.31XA Fracture of one rib, right side, initial encounter for closed fracture; E87.1 Hypo-osmolality and hyponatremia; I13.0 Hypertensive heart and chronic kidney disease with heart failure and stage 1 through stage 4 chronic kidney disease, or unspecified chronic kidney disease; I50.42 Chronic combined systolic (congestive) and diastolic (congestive) heart failure; C91.90 Lymphoid leukemia, unspecified not having achieved remission; N18.3 Chronic kidney disease, stage 3 (moderate); E11.22 Type 2 diabetes mellitus with diabetic chronic kidney disease; I25.10 Atherosclerotic heart disease of native coronary artery without angina pectoris; I25.5 Ischemic cardiomyopathy; I48.91 Unspecified atrial fibrillation; G31.84 Mild cognitive impairment of uncertain or unknown etiology; W18.30XA Fall on same level, unspecified, initial encounter; Z86.73 Personal history of transient ischemic attack (TIA), and cerebral infarction without residual deficits; Z95.5 Presence of coronary angioplasty implant and graft; Z79.01 Long term (current) use of anticoagulants; I73.9 Peripheral vascular disease, unspecified; N32.0 Bladder-neck obstruction; R33.9 Retention of urine, unspecified; N40.1 Benign prostatic hyperplasia with lower urinary tract symptoms; Z87.891 Personal history of nicotine dependence; Z66 Do not resuscitate; R06.03 Acute respiratory distress
CPT/HCPCS: 32551; 36415; 51701; 51702; 71045; 71046; 71101; 80048; 80053; 82947; 85025; 85027; 96374; 99285-25; J1815; J3010

== ENCOUNTER 2018-03-29 10:48 | Emergency (ER) | payer MEDICARE, OTHER ==
[~2018-03-29] VITALS: Ht 157.5 cm; Wt 90.7 kg
[~2018-03-29 10:48] MED LIST changes: +ASCO500 PO; +PAIN & FEVER325 MG PO; +TRAM50 PO; +UBID10 PO; +Zantac150 MG PO
== END 2018-03-29 12:05 | disposition home or self-care (01) ==
LOC: ER 10:48
DX: R33.9 Retention of urine, unspecified (principal); E11.22 Type 2 diabetes mellitus with diabetic chronic kidney disease; I12.9 Hypertensive chronic kidney disease with stage 1 through stage 4 chronic kidney disease, or unspecified chronic kidney disease; N18.3 Chronic kidney disease, stage 3 (moderate); I48.91 Unspecified atrial fibrillation; Z87.891 Personal history of nicotine dependence; Z88.0 Allergy status to penicillin; Z79.899 Other long term (current) drug therapy
CPT/HCPCS: 51702; 51798; 99283

== ENCOUNTER 2018-04-05 16:33 | Emergency (ER) | payer MEDICARE, OTHER ==
[~2018-04-05] VITALS: Ht 182.9 cm; Wt 77.1 kg
[2018-04-05] MEDS ORDERED: Roxicodone5 MG PO (17:25)
[2018-04-05] MEDS ORDERED: CEPH500 PO (17:36)
--- NOTE | 2018-04-05 17:58 | NUR ---
pt resting flushed and mouth is dry. reviewed symptoms he is warm to touch. feels feels chilled and achey. Diferent atemtps by physician and myself to allow some treatment. pt refuses. he is scheduled for hospice intake on sunday. Call made to [facility] to see if they could see him this weekend and they are full. Strategy with physician and pt daughter for caregivers [place]ritney weekend. Daughter states he has mostly stopped eating and has mde up his mind to go! Pt agreed to urine sample and some antibiotics. This natalya gentle man has suffered from many many infections. His has a arrington leg bag. He dienies pain to his rib or back. He just wants to be in his chair and rest and not hurt. Reviewed care with daughter and she will stay with him and get caregiver help. [facility] will be out sunday. Instruction given to take him to urgent care at [place] or return to ER if help needed. supportive care given to daughter she is expresses she is prepared and hopes he will join her moather soon as that is where he wants to be.
[2018-04-05 18:32] LABS: Source, Urine Clean Catch
[2018-04-05 18:43] LABS: Bilirubin, Urine Neg (Neg); Blood, Urine 4+ (Neg); Glucose Qualitative, Urine Neg (Neg); Ketones, Urine Neg (Neg); Leukocyte Esterase, Urine 3+ (Neg); Nitrite, Urine Neg (Neg); Protein, Urine 2+ (Neg); Specific Gravity, Urine 1.015 (1.003-1.022); Urobilinogen, Urine NORM (Normal)
[2018-04-05 19:05] LABS: Appearance, Urine Cloudy (Clear); Color, Urine Yellow (P-Yellow)
[2018-04-05 19:09] LABS: Bacteria Many /hpf; Squamous Epithelial Cells Not Seen /hpf (Few); White Blood Cells, Urine TNTC /hpf (0-5)
== END 2018-04-05 18:37 | disposition home or self-care (01) ==
LOC: ER 16:33
PROVIDERS: Emergency Medicine
DX: R50.9 Fever, unspecified (principal); Z88.0 Allergy status to penicillin; Z79.899 Other long term (current) drug therapy; Z79.82 Long term (current) use of aspirin; Z86.73 Personal history of transient ischemic attack (TIA), and cerebral infarction without residual deficits; I48.91 Unspecified atrial fibrillation; Z87.891 Personal history of nicotine dependence
CPT/HCPCS: 81001; 87077; 87086; 87186; 99284